=== PATIENT | male | born 1970 | race Caucasian/White ===

== ENCOUNTER 2022-01-05 05:30 | Emergency (ER) | payer OTHER, MEDICAID ==
[~2022-01-05] VITALS: Ht 188 cm; Wt 181.4 kg
[2022-01-05 05:30] VITALS: BP_SYST 140
--- NOTE | 2022-01-05 06:30 | NUR ---
Pt placed to ER bed 07. Pt c/o BLE swelling since September that has progressively worsened. Pt states pain has now traveled to knees. Pt states that he was seen at [facility] on 10/07/2021, but was "told that law enforcement told staff to not help him." Pt presents with discharge papers from that visit with Dx "Weakness with Uncertain Cause."
--- NOTE | 2022-01-05 06:40 | NUR ---
Pt leaves room to ER waiting room. Pt states that he wants to leave.
--- NOTE | 2022-01-05 06:50 | NUR ---
Dr. Champion at bedside to assess pt.
--- NOTE | 2022-01-05 07:06 | NUR ---
made aware of pt desire to leave AMA. AMA form signed by Dr. Champion and pt. Pt leaves ER waiting room with steady gait and stable condition. NAD.
--- NOTE | 2022-01-05 07:13 | NUR ---
Patient does not wish to proceed with medical care recommended by Dr Champion. Patient given information related to possible complications, up to and including , which could occur as a result of leaving hospital at this time. Patient verbalizes understanding of risks involved leaving against medical advice. Patient has signed AMA form. Pt discharged with all belongings
== END 2022-01-05 07:15 | disposition left against medical advice (07) ==
LOC: SED 05:30
DX: R60.0 Localized edema (principal); F20.0 Paranoid schizophrenia
CPT/HCPCS: 99281